=== PATIENT | female | born 1970 | race Caucasian/White ===

== ENCOUNTER 2017-02-10 10:52 | Emergency (ER) | payer OTHER ==
--- NOTE | 2017-02-10 10:54 | PDOC ---
Attending Attestation - Resident Resident Name: Marky Madrid - ED Attending Attestation I have performed the following: I have examined & evaluated the patient, The case was reviewed & discussed with the resident, I agree w/resident's findings & plan, Exceptions are as noted - HPI HPI: 02/10/17 11:39 The patient is a 46-year-old female, with a significant past medical history of cigarette smoking, on oral progesterone, chronic anxiety, who presents to the emergency department with approximately 24 hours of right-sided "facial numbness." She clearly articulates that the numbness involves the forehead, the cheek and chin, and extends to the area of "behind her right ear." When asked to describe kevin numbness she says it feels "heavy." She denies any associated weakness of the face, facial drooping, difficulty speaking, difficulty eating or drinking. She denies extremity weakness or paresthesias. She states that yesterday she did feel some numbness on the left cheek and in both hands, but those symptoms have now resolved. She denies any rash. She denies fever. She has not had previous symptoms. She denies ear pain. She denies loss of taste on the right side of her tongue. She denies neck pain or recent trauma. 02/10/17 11:40 02/10/17 13:33 - Physicial Exam PE: 02/10/17 11:40 She is well-appearing and in no acute distress She has subjective paresthesias in the right forehead, cheek and chin, without associated motor weakness Cranial nerves are intact No extremity weakness or paresthesias - Medical Decision Making 02/10/17 11:41 She is well-appearing and in no acute distress I suspect early Farooq's palsy, though lack of motor symptoms is atypical Her description of "numbness" is that her face feels "heavy" Will obtain head CT 02/10/17 12:54 CT noted Neuro exam unchanged 02/11/16 13:01 I have paged neurology Dr. Rubio is habilitation assistant Dr. Obregon, covering for her PCP is aware of ED course including CT findings and can ensure follow-up and further evaluation. 02/10/17 13:56 The patient understands that it is imperative that she follow up with neurologist on Sunday for further evaluation, including evaluation of the lesion seen in the fourth ventricle on CT scan. She understands that if her eye becomes weak, and she is unable to close it, she needs to use artificial tears, and sleep with her eye taped shut as well as a blindfold, to minimize the chance of the corneal abrasion. Clinical impression: Facial paresthesias Early Farooq's palsy I discussed the physical exam findings, ancillary test results and final diagnoses with the patient. I answered all of the patient's questions. The patient was satisfied with the care received and felt comfortable with the discharge plan and treatment plan. The patient will call their primary care physician within 24 hours to arrange follow-up and will return to the Emergency Department with any new, persistent or worsening symptoms. Discharge Disposition - Diagnosis Farooq's palsy - Discharge Dispostion Disposition: HOME Condition at time of disposition: Stable - Prescriptions Prescriptions: Prednisone [Deltasone -] 60 mg PO DAILY #7 tablet - Referrals Referrals: Norman Tiwari MD [Primary Care Provider] - Call tomorrow Horace Rubio MD [Staff Physician] - Call tomorrow - Patient Instructions Printed Discharge Instructions: DI for Farooq's Palsy Additional Instructions: Your symptoms are most consistent with a problem known as Farooq's palsy. We have prescribed medications for this. Your CAT scan did not show evidence of stroke, but it did have an area of calcium formation which should be further evaluated by a neurologist as well as your primary care physician. They may ask you to have an MRI. Return to the emergency department immediately with ANY new, persistent or worsening symptoms. You MUST call and follow up with your doctor tomorrow. Please make sure your doctor reviews the results of your emergency department evaluation.
[2017-02-10 11:12] VITALS: BP 105/72; PULSE 92; TEMP 98.4; BMI 21.9
--- NOTE | 2017-02-10 12:06 | PDOC ---
History of Present Illness - General Chief Complaint: Head/Neck problem Stated Complaint: RIGHT FACE TINGLING Time Seen by Provider: 02/10/17 10:54 History Source: Patient Exam Limitations: No Limitations - History of Present Illness Initial Comments: 46 y/o F w/PMH of anxiety, current smoker, presents to ER w/ c/o R sided facial numbness and tingling. Pt began feeling these symptoms yesterday morning at work and symptoms have remained the same since yesterday. She describes it as if "there was Novocaine injected into her face". Upon waking up this morning she she felt some tingling in her fingers and L cheek which have seen dissipated. She denies any facial drooping, difficulty swallowing, facial pain, changes in hearing or vision, difficulty in speaking, arm weakness, chest pain, headache, light-headedness, dizziness. Pt reports no changes in meds, reports no trauma, no MVA, or change in symptoms based on position. Denies N/V/F/C, abd pain, swelling. Past History - Past Medical History Allergies/Adverse Reactions: Allergies Allergy/AdvReac Type Severity Reaction Status Date / Time No Known Allergies Allergy Verified 02/10/17 11:02 Home Medications: Ambulatory Orders Clonazepam [Klonopin] 1 mg PO TID tablet 11/30/16 Progesterone,Micronized [Progesterone] 200 mg PO HS capsule 11/30/16 Prednisone [Deltasone -] 60 mg PO DAILY #7 tablet 02/10/17 Anemia: No Asthma: No Cancer: No Cardiac Disorders: No CVA: No COPD: No CHF: No Dementia: No Diabetes: No GI Disorders: No Disorders: No HTN: No Hypercholesterolemia: No Liver Disease: No Psychiatric Problems: Yes (ANXIETY) Seizures: No Thyroid Disease: No - Psycho/Social/Smoking Cessation Hx Anxiety: Yes Suicidal Ideation: No Smoking History: Current every day smoker Have you smoked in the past 12 months: Yes Number of Cigarettes Smoked Daily: 3 Information on smoking cessation initiated: Yes 'Breaking Loose' booklet given: 02/10/17 Hx Alcohol Use: No Drug/Substance Use Hx: No Substance Use Type: None Hx Substance Use Treatment: No Review of Systems - Review of Systems Able to Perform ROS?: Yes Comments:: CONSTITUTIONAL: Absent: fever, chills, diaphoresis, generalized weakness, malaise, loss of appetite HEENT: Absent: rhinorrhea, nasal congestion, throat pain, throat swelling, difficulty swallowing, mouth swelling, ear pain, eye pain, visual Changes CARDIOVASCULAR: Absent: chest pain, syncope, palpitations, irregular heart rate , lightheadedness, peripheral edema RESPIRATORY: Absent: cough, shortness of breath, dyspnea with exertion GASTROINTESTINAL:Absent: abdominal pain, nausea, vomiting MUSCULOSKELETAL: Absent: myalgia HEMATOLOGIC/IMMUNOLOGIC: Absent: easy bleeding, easy bruising, lymphadenopathy, frequent infections ENDOCRINE:Absent: unexplained weight gain, unexplained weight loss, heat intolerance, cold intolerance NEUROLOGIC: +facial numbness and parasthesias. +parasthesias in fingers and L cheek (now dissipated) Absent: headache, focal weakness, dizziness, unsteady gait, seizure, mental status changes, bladder or bowel incontinence PSYCHIATRIC: +anxiety Absent: depression, suicidal or homicidal ideation, hallucinations *Physical Exam - Vital Signs Last Vital Signs Temp Pulse Resp BP Pulse Ox 98.4 F 92 H 15 105/72 98 02/10/17 10:53 02/10/17 10:53 02/10/17 10:53 02/10/17 10:53 02/10/17 10:53 - Physical Exam Comments: GENERAL: Well developed, well nourished. Awake and alert. No acute distress. HEENT: Normocephalic, atraumatic. PERRLA, EOMI. No conjunctival pallor. Sclera are non-icteric. Moist mucous membranes. Oropharynx is clear. NECK: Supple. Full ROM. No JVD. CARDIOVASCULAR: Regular rate and rhythm. No murmurs, rubs, or gallops. Distal pulses are 2+ and symmetric. PULMONARY: No evidence of respiratory distress. Lungs clear to auscultation bilaterally. No wheezing, rales or rhonchi. ABDOMINAL: Soft. Non-tender. Non-distended. No rebound or guarding. No organomegaly. Normoactive bowel sounds. MUSCULOSKELETAL: Normal range of motion at all joints. No bony deformities or tenderness. No CVA tenderness. EXTREMITIES: No cyanosis. No clubbing. No edema. No calf tenderness. SKIN: Warm and dry. Normal capillary refill. No rashes. No jaundice. NEUROLOGICAL: Alert, awake, appropriate. Cranial nerves 2-12 grossly intact. No deficits to light touch and temperature in face, upper extremities and lower extremities. No motor deficits in the in face, upper extremities and lower extremities.5/5 B/L UE strength. Normal speech. No focal neurological deficits noted. PSYCHIATRIC: Cooperative. Good eye contact. Appropriate mood and affect. ED Treatment Course - RADIOLOGY Radiology Studies Ordered: Category Date Time Status HEAD CT WITHOUT CONTRAST [CT] Urgent CT Scan 02/10/17 11:39 Ordered Medical Decision Making - Medical Decision Making 46 y/o F w/PMH of anxiety, current smoker, presents to ER w/ c/o R sided facial numbness and tingling. Pt began feeling these symptoms yesterday morning at work and symptoms have remained the same since yesterday. She describes it as if "there was Novocaine injected into her face". Upon waking up this morning she she felt some tingling in her fingers and L cheek which have seen dissipated. She denies any facial drooping, difficulty swallowing, facial pain, changes in hearing or vision, difficulty in speaking, arm weakness, chest pain, headache, light-headedness, dizziness. Pt reports no changes in meds, reports no trauma, no MVA, or change in symptoms based on position. Pt has had physical manifestations of her anxiety before but this is the first time she has felt these symptoms. 02/10/2017 11:40 Pt has no neurological deficits on exam with preserved and equal sensation to light touch on face on physical exam. This is likely early onset Farooq's Palsy. Will get Head CT. 02/10/17 13:[address] shows lesion in 4th ventricle but not other significant findings noted on Head CT. Pt is to follow up with neurology for Farooq's Palsy and for lesion in ventricle. Pt is also to f/u with PCP and to return to ER if symptoms worsen or persist. *DC/Admit/Observation/Transfer Diagnosis at time of Disposition: Farooq's palsy - Discharge Dispostion Disposition: HOME Condition at time of disposition: Good - Prescriptions Prescriptions: Prednisone [Deltasone -] 60 mg PO DAILY #7 tablet - Referrals Referrals: Horace Rubio MD [Staff Physician] - Call tomorrow Outon,MD Norman [Primary Care Provider] - Call tomorrow - Patient Instructions Printed Discharge Instructions: DI for Farooq's Palsy Additional Instructions: Your symptoms are most consistent with a problem known as Farooq's palsy. We have prescribed medications for this. Your CAT scan did not show evidence of stroke, but it did have an area of calcium formation which should be further evaluated by a neurologist as well as your primary care physician. They may ask you to have an MRI. Return to the emergency department immediately with ANY new, persistent or worsening symptoms. You MUST call and follow up with your doctor tomorrow. Please make sure your doctor reviews the results of your emergency department evaluation.
== END 2017-02-10 14:02 | disposition home or self-care (01) ==
LOC: FER 10:52
DX: G51.0 Bell's palsy (principal); F17.210 Nicotine dependence, cigarettes, uncomplicated; F41.9 Anxiety disorder, unspecified
CPT/HCPCS: 70450-TC; 99282-25